=== PATIENT | female | born 1975 | race Caucasian/White ===

== ENCOUNTER 2022-05-24 09:13 | Emergency (ER) | payer BC, SELFPAY ==
[2022-05-24] VITALS (30 sets, daily range): BP systolic 138–175; BP diastolic 76–122; PULSE 71–95; RESP 7–23; TEMP 36.4; O2SAT 95–100
--- NOTE | 2022-05-24 09:15 | DI.RAD_ITS ---
Exam(s) XR CHEST 2V PA LATERAL EXAM: XR CHEST 2V PA LATERAL CLINICAL HISTORY: chest pain TECHNIQUE: 2D digital imaging was performed of the chest. Two images were obtained. PA and lateral views were obtained. COMPARISON: No exams were available for comparison FINDINGS: MEDIASTINUM: Normal. HEART: Normal. PULMONARY VASCULATURE: Normal. LUNGS: Clear. Note is made of an azygos lobe which is a normal variant. PLEURAL SPACE: No pleural effusion or pneumothorax. BONE:Within normal limits for the patient's age. OTHER FINDINGS:Normal. IMPRESSION: No acute pulmonary findings. DATA REPOSITORY: RADIATION DOSE DELIVERED:
--- NOTE | 2022-05-24 09:15 | RT.EKG_ITS ---
APPROVED REPORT Exam: Resting ECG Reason for Exam: chest pain Patient Location: E HR:77 bpm ECG Measurements Heart Rate 77 AXIS WI 140 P 34 QRSd 91 QRS 69 QT 375 T 48 QTc 425 Conclusion Sinus rhythm...normal P axis, V-rate 60- 99
--- NOTE | 2022-05-24 09:30 | DI.CT_ITS ---
Exam(s) CT BRAIN NECK CTA EXAM: CT BRAIN NECK CTA CLINICAL HISTORY: left neck pain and dizziness. TECHNIQUE: Imaging Protocol: Axial CT angiography was performed with multi-slice acquisition and mu lti-planar and/or 3D reconstructions. CONTRAST MATERIAL: Intravenous: Omnipaque 350 contrast volume:85 mL COMPARISON: No exams were available for comparison FINDINGS: CT Head W/O and W: Ventricles and Extra axial spaces: Normal in size and morphology for the patient's age. Hemorrhage: None. Cerebral parenchyma: Normal. Midline shift: None. Brainstem/Cerebellum: Normal. Calvarium: Normal. Visualized Paranasal sinuses/Mastoids: There is a mucous retention cyst or polyp in the right maxilla ry sinus. The remaining visualized paranasal sinuses are clear. Soft Tissues: Unremarkable. Enhancement: Unremarkable. CTA Neck W: Common Carotid: Right: No dissection, occlusion or significant stenosis. Left: No dissection, occlusion or significant stenosis. External Carotid: Right: No occlusion or significant stenosis. Left: No occlusion or significant stenosis. Internal Carotid: Right: No dissection, occlusion or significant stenosis. Left: No dissection, occlusion or significant stenosis. Vertebral Artery: Right: No dissection, occlusion or significant stenosis. Left: No dissection, occlusion or significant stenosis. The left vertebral artery is attenuated but present. Lung Apices: Note is made of a azygos lobe which is a normal variant. Bones: Within normal limits for the patient's age. Degenerative changes in the cervical spine. Soft Tissues: Normal. Thyroid gland: Unremarkable. CTA Brain W: Internal Carotid Arteries: Normal. Anterior Cerebral Arteries: Right: No aneurysm, occlusion or significant stenosis. Left: No aneurysm, occlusion or significant stenosis. Middle Cerebral Arteries: Right: No aneurysm, occlusion or significant stenosis. Left: No aneurysm, occlusion or significant stenosis. Posterior Cerebral Arteries: Right: No aneurysm, occlusion or significant stenosis. Left: No aneurysm, occlusion or significant stenosis. Vertebral Arteries: Right: No aneurysm, occlusion or significant stenosis. Left: No aneurysm, occlusion or significant stenosis. Basilar Artery: No aneurysm, occlusion or significant stenosis. IMPRESSION: 1. No large vessel occlusion or significant stenosis on the CT angiography of the head. 2. No acute intracranial process. 3. No occlusion or significant stenosis on the CT angiography of the neck. 4. Findings were discussed with Eva Feliz at 12:05 p.m. on 05/24/2022. RADIATION DOSE DELIVERED: 1,995.86mGy.cm Total DLP DATA REPOSITORY: All CT scans at this facility are submitted to the National Radiology Data Registry (NRDR) Dose Index Registry (DIR) with the [employer] ([employer]). RADIATION OPTIMIZATION: All CT scans at this facility use at least one of these dose optimization te chniques: automated exposure control; mA and/or kV adjustment per patient size (includes targeted exa ms where dose is matched to clinical indication); or iterative reconstruction.
--- NOTE | 2022-05-24 09:31 | ED.GENADUL_ITS ---
Discharge Plan Disposition Patient Disposition: Home Discharge Details Clinical Impression: Headache, Dizziness, Neck pain Primary Care Provider: None,None ED Provider: Eva Feliz Home Meds and New Rx's Prescriptions: Continued Women's 50 Plus Daily Formula 400 mcg-500 mg calcium-20 mcg Tablet 1 tab PO DAILY Discharge Instructions Instructions: Dizziness (ED), General Headache (ED), Neck Pain (ED) Additional Instructions: Please follow-up with primary care physician regarding your symptoms Please take ibuprofen and Tylenol as needed for headache Your tests are reassuring including CAT scan of your head and neck including the arteries which was negative for acute abnormality Your EKG and heart levels are all within normal limits which is also reassuring Should you have new, worsening, or persistent symptoms, please return for reassessment Try to drink at least 8 to 10 glasses of water, 8 ounces each daily When bending over or going from sitting to standing, give yourself extra time to acclimate Discharge Data Discharge Date/Time-TO BE ENTERED AT DEPARTURE: 05/24/22 13:03 Medical Decision Making 46-year-old female presents with chest pain, lightheadedness, and neck pain with palpitations EKG and diagnostic labs are reassuring 2 troponins negative CTA head and neck ordered secondary to to recent chiropractic manipulation, negative for acute abnormality per radiology interpretation and my review EKG without acute abnormality, low risk from a cardiovascular standpoint Encouraged follow-up with primary care physician, for close outpatient reassessment and possible stress test at their discretion Low suspicion for cardiac etiology of patient's complaints Feeling marked improvement with Ativan administration, will follow up with Dr. Delaney in the outpatient setting Medical Records Medical records reviewed: Yes I reviewed the patient's medical records. Lab Data Lab results reviewed: Yes I reviewed the patient's lab results. HPI General Date/Time Provider Initiated Documentation: 05/24/22 09:14 . HPI Narrative: This 46-year-old female presents with 3 weeks of neck pain which has been getting worse with intermittent headaches with auras. She states her blood pressure has been elevated intermittently. This morning she felt lightheaded and had chest pressure with nausea which precipitated her visit today. States she has anxiety and is feeling more anxious. Related Data Home Medications Medication Instructions Recorded Confirmed [id number] ac 400 1 tab PO DAILY 05/24/22 05/24/22 mcg-calcium carb 500 mg-vit K1 20 mcg tablet (Women's 50 Plus Daily Formula) Allergies Allergy/AdvReac Type Severity Reaction Status Date / Time tree nut Allergy Anaphylaxis Unverified 05/24/22 09:42 General Stated Complaint: Chest Pain ARGELIA: 3 PFSH All Active Problems (Updated 05/24/22 @ 12:44 by UNIQUE Salazar) Headache (Acute) Dizziness (Acute) Neck pain (Acute) Social History Smoking/Tobacco Use Status: Never Smoking risk assessment performed?: Yes Alcohol Intake: current Alcohol Intake frequency: 0-2 drinks per day Alcohol type: beer and hard liquor Drug use: Daily Substance use type: marijuana Do you feel safe at home: Yes Do you feel safe in your relationship?: Yes Additional Social history: pt states she feels safe but is in the middle of a seperation and is seeing a new partner, is thinking about moving out of her home. Exam Const General: cooperative, comfortable and no acute distress HENMT Head: normal to inspection Mouth: oral mucosae normal Eyes Pupils: PERRL Neck Other: no carotid bruit Resp Effort & Inspection: normal respiratory effort Auscultation: clear to auscultation bilaterally Cardio Rate: regular rate Rhythm: regular rhythm GI Inspection: normal to inspection Other: non-tender abdominal exam Skin General skin exam: no rashes or lesions noted Neuro General: patient alert and patient oriented x3 Cranial Nerves: CN's II-XI intact bilaterally and tongue midline Cognition: normal cognition Speech: speech normal Gait: normal gait Sensory Exam: no sensory deficits noted Course Vital Signs Vital signs: Vital Signs Temperature 36.4 C L 05/24/22 09:17 Pulse 82 05/24/22 09:17 Respiratory Rate 18 05/24/22 09:17 Blood Pressure 175/91 H 05/24/22 09:17 Pulse Oximetry 100 05/24/22 09:17 Temperature 36.4 C L 05/24/22 09:17 Temperature Source Oral 05/24/22 09:17 Pulse 82 05/24/22 09:17 Respiratory Rate 18 05/24/22 09:17 Blood Pressure 175/91 H 05/24/22 09:17 Blood Pressure Position Supine 05/24/22 09:17 Pulse Oximetry 100 05/24/22 09:17 Oxygen Delivery Method Room Air 05/24/22 09:17 Oxygen Flow Rate 0 05/24/22 09:17 Pain Level 2 05/24/22 09:17
[2022-05-24 09:40] LABS: Abs Immature Grans 0.03 10^3/uL (0.0-0.06); Absolute Basophil Count 0.04 10^3/uL (0.0-0.2); Absolute Monocyte Count 0.45 10^3/uL (0.1-0.8); Absolute Neutrophil Count 6.19 10^3/uL (1.2-6.7); Basophils % 0.5; Eosinophils % 1.2; HCT 44.9 % (36.0-46.0); HGB 15.6 g/dL (11.2-15.7); Immature Grans % 0.4; MCH 28.2 pg (27.0-33.0); MCHC 34.7 % (32.0-36.0); MCV 81 fL (80-95); MPV 8.7 fL (8.0-11.0); Monocytes % 5.3; Neutrophils % 72.6; Platelet Count 277 10^3/uL (130-400); RBC 5.54 10^6/uL (3.93-5.22); RDW-SD 38.3 fL; WBC 8.51 10^3/uL (4.4-10.8)
--- NOTE | 2022-05-24 09:41 | NUR.NOTE ---
Addendum entered by Otilia Haji RN 05/24/22 09:50: Pt then states tingling in the left side of face, provider made aware of both concerns. Original Note: Nursing Note: states a pain under the right ribs that hurts only when sneezing, can not reproduce with palpation. states doing ab exercised yesterday.
[2022-05-24 09:47] LABS: Bilirubin Negative (Negative); Blood Negative (Negative); Clarity Cloudy (Clear); Glucose Negative (Negative); Ketones Negative (Negative); Leukocyte Esterase Negative (Negative); Nitrite Negative (Negative); Urobilinogen 0.2 mg/dL (Up to 0.2)
[2022-05-24 09:57] LABS: ALT 22 U/L (14-59); AST 13 U/L (15-37); Albumin 4.5 g/dL (3.4-5.0); Alkaline Phosphatase 70 U/L (46-116); Anion Gap 7.1 mmol/L (3-11); BUN 12 mg/dL (7-18); Bilirubin, Total 0.7 mg/dL (0.2-1.0); CO2 28.9 mmol/L (21.0-32.0); CREATININE 0.9 mg/dL (0.55-1.02); Calcium 9.4 mg/dL (8.5-10.1); Chloride 104 mmol/L (98-107); Estimated GFR 79.35 (mL/min/1.73m2); Glucose 118 mg/dL (74-106); Potassium 3.7 mmol/L (3.5-5.1); Sodium 140 mmol/L (136-145); Total Protein 8.1 g/dL (6.4-8.2)
[2022-05-24] MEDS: Normal Saline 1,000 ML 1000 ML IV (09:58)
[2022-05-24] MEDS: LORazepam 2 MG/ML VIAL 1 MG IVP (09:58)
[2022-05-24 10:06] LABS: Magnesium 2.1 mg/dL (1.8-2.4); TSH (W/Ref FT4) 2.18 uIU/mL (0.36-3.74); Troponin I < 50 ng/L (<or=60)
[2022-05-24] MEDS: Omnipaque 350 MG/ML 500 ML BTL-Imaging package IJ (11:02)
[2022-05-24] MEDS: Normal Saline - Diluent 50 ML VIAL IJ (11:04)
[2022-05-24 12:14] LABS: Troponin I < 50 ng/L (<or=60)
== END 2022-05-24 13:03 | disposition home or self-care (01) ==
PROVIDERS: Emergency Provider Physician Assistant
DX: R51.9 Headache, unspecified (principal); M54.2 Cervicalgia; R42 Dizziness and giddiness; R00.2 Palpitations; R07.89 Other chest pain
CPT/HCPCS: 36415; 70496; 70498; 80053; 81025; 93005; 96361; 96374; 96375; 99285; 71046; 81003; 83735; 84443; 84484; 85025; 93010; J2060